=== PATIENT | male | born 1945 | race Caucasian/White ===

== ENCOUNTER → 2016-04-24 | Outpatient (CLI) | payer OTHER | LOC: CIMAGING 11:28 | PROVIDERS: ATTEND Physician Assistant | DX: Z09 Encounter for follow-up examination after completed treatment for conditions other than malignant neoplasm (principal); Z98.1 Arthrodesis status | CPT/HCPCS: 72100-PO ==

== ENCOUNTER → 2016-07-10 | Outpatient (CLI) | payer OTHER | LOC: CIMAGING 10:36 | PROVIDERS: ATTEND Physician Assistant | DX: Z98.1 Arthrodesis status (principal) | CPT/HCPCS: 72100-PO ==

== ENCOUNTER → 2017-01-19 | Outpatient (CLI) | payer OTHER | LOC: CIMAGING 12:22 | PROVIDERS: ATTEND Physician Assistant | DX: N28.89 Other specified disorders of kidney and ureter (principal); N40.0 Benign prostatic hyperplasia without lower urinary tract symptoms | CPT/HCPCS: 74000-PO; 76770-PO ==

== ENCOUNTER → 2017-02-07 | Outpatient (CLI) | payer OTHER | LOC: CIMAGING 09:14 | PROVIDERS: ATTEND Physician Assistant | DX: N20.0 Calculus of kidney (principal); K57.30 Diverticulosis of large intestine without perforation or abscess without bleeding | CPT/HCPCS: 74176-PO ==

== ENCOUNTER → 2018-03-16 | Outpatient (CLI) | payer OTHER | LOC: CIMAGING 11:32 | DX: Z09 Encounter for follow-up examination after completed treatment for conditions other than malignant neoplasm (principal); N20.0 Calculus of kidney | CPT/HCPCS: 74018-PO ==